=== PATIENT | male | born 1990 | race Two or more races ===

== ENCOUNTER 2016-10-21 01:01 | Emergency (ER) | payer MEDICAID ==
[2016-10-21 01:06] VITALS: BP 130/83
--- NOTE | 2016-10-21 01:08 | EDM.PDOC ---
ED HPI GENERAL MEDICAL PROBLEM - General Chief Complaint: Upper Extremity Injury/Pain Stated Complaint: left wrist cyst Time Seen by Provider: 10/21/16 01:03 Source of Information: Reports: Patient History Limitations: Reports: No Limitations - History of Present Illness INITIAL COMMENTS - FREE TEXT/NARRATIVE: Patient noticed a lump in his left wrist about 4 days ago. He is here due to his and mother fearing it may be a blood clot. He does not remember injuring his wrist recently. No vascular or neurologic complaints. No SOB, chest pain, no history of clotting disorders. States it is painful with movement most specifically flexion of the wrist. Onset Date: 10/16/16 Associated Symptoms: Reports: No Other Symptoms - Related Data Allergies Allergy/AdvReac Type Severity Reaction Status Date / Time No Known Allergies Allergy Verified 10/21/16 01:02 Home Meds: Home Meds . [No Known Home Meds] 06/15/15 [History] Past Medical History - Past Health History Medical/Surgical History: Denies Medical/Surgical History Social & Family History - Tobacco Use Smoking Status *Q: Never Smoker Review of Systems - Review of Systems Review Of Systems: ROS reveals no pertinent complaints other than HPI. ED EXAM, GENERAL - Physical Exam Exam: See Below Exam Limited By: No Limitations General Appearance: Alert, WD/WN, No Apparent Distress Extremities: Normal Inspection, Normal Range of Motion, No Pedal Edema, Other ( left wrist site is tender to palpation). No: Arm Pain, Dae's Sign, Leg Pain, Increased Warmth, Redness Neurological: Alert, Oriented, CN II-XII Intact, Normal Cognition Psychiatric: Normal Affect, Normal Mood Skin Exam: Warm, Dry, Intact, Normal Color Departure - Departure Time of Disposition: 01:10 Disposition: Home, Self-Care 01 Condition: Good Clinical Impression: Cyst in hand - Discharge Information Forms: ED Department Discharge Additional Instructions: This is likely a sebaceous cyst. I would recommend follow up with a primary doctor. They may want it to be watched for several weeks to see if it resolves on its own. If it does not, it may need to be removed. This is highly unlikely to be any kind of blood clot. Take tylenol and ibuprofen for any pain related to it. Please call with any questions or concerns. - Problem List & Annotations (1) Cyst in hand SNOMED Code(s): 371485439 Code(s): XWA8200 - Status: Acute Priority: Low - Problem List Review Problem List Initiated/Reviewed/Updated: Yes - Assessment/Plan Assessment:: left wrist cyst Plan: This is likely a sebaceous cyst. I would recommend follow up with a primary doctor. They may want it to be watched for several weeks to see if it resolves on its own. If it does not, it may need to be removed. This is highly unlikely to be any kind of blood clot. Take tylenol and ibuprofen for any pain related to it. Please call with any questions or concerns.
== END 2016-10-21 01:14 | disposition home or self-care (01) ==
LOC: VM.ED 01:01
DX: L72.9 Follicular cyst of the skin and subcutaneous tissue, unspecified (principal)
CPT/HCPCS: 99283

== ENCOUNTER 2017-05-09 12:24 | Emergency (ER) | payer MEDICAID, OTHER ==
[2017-05-09 12:44] VITALS: BP 138/76
--- NOTE | 2017-05-09 19:28 | EDM.PDOC ---
ED HPI GENERAL MEDICAL PROBLEM - General Chief Complaint: Upper Extremity Injury/Pain Time Seen by Provider: 05/09/17 12:45 Source of Information: Reports: Patient History Limitations: Reports: No Limitations - History of Present Illness INITIAL COMMENTS - FREE TEXT/NARRATIVE: Pt. states that he fell on ice several days ago and now has pain to his R shoulder. States that he fell on an outstretched hand. Denies any numbness/ tingling in the extremity. Denies striking head or other trauma elsewhere. Onset Date: 05/06/17 Location: Reports: Upper Extremity, Right Quality: Reports: Ache, Throbbing Improves with: Reports: Rest Worsens with: Reports: Movement Right Shoulder Pain Score (Numeric/FACES): 8 - Related Data Allergies Allergy/AdvReac Type Severity Reaction Status Date / Time No Known Allergies Allergy Verified 05/09/17 12:39 Home Meds: Home Meds . [No Known Home Meds] 06/15/15 [History] Past Medical History - Past Health History Medical/Surgical History: Denies Medical/Surgical History Social & Family History - Tobacco Use Smoking Status *Q: Never Smoker - Recreational Drug Use Recreational Drug Use: No Review of Systems - Review of Systems Review Of Systems: See Below Constitutional: Reports: No Symptoms Musculoskeletal: Reports: Joint Pain (L posterior shoulder) Skin: Reports: No Symptoms Neurological: Reports: No Symptoms Psychiatric: Reports: No Symptoms ED EXAM, GENERAL - Physical Exam Exam: See Below Exam Limited By: No Limitations General Appearance: Alert, WD/WN, No Apparent Distress Extremities: Normal Inspection, Normal Range of Motion, Joint Swelling, Other ( R posterior shoulder pain, in area of supraspinatus. empty can and straight arm raise are negative.) Neurological: Alert, Oriented, CN II-XII Intact, Normal Cognition, Normal Gait, Normal Reflexes, No Motor/Sensory Deficits Course - Vital Signs Last Recorded V/S: Last Vital Signs Temp 35.5 C 05/09/17 12:30 Pulse 56 L 05/09/17 12:30 Resp 16 05/09/17 12:30 BP 138/76 05/09/17 12:30 Pulse Ox - Orders/Labs/Meds Orders: Active Orders 24 hr Category Date Time Status Shoulder Comp Rt [CR] Stat Exams 05/09/17 12:46 Taken - Radiology Interpretation Free Text/Narrative:: No evidence of fracture/dislocation Departure - Departure Time of Disposition: 14:30 Disposition: Home, Self-Care 01 Condition: Good Clinical Impression: Sprain of left shoulder - Discharge Information Instructions: Shoulder Sprain, Shoulder Pain, [id number] Referrals: PCP,None [Primary Care Provider] - Forms: ED Department Discharge Additional Instructions: Ice shoulder for 10-15 min ever 1-2 hours Ibuprofen 600mg every 6 hours Follow-up in clinic in 7-10 days for recheck if not improving. - My Orders Last 24 Hours: My Active Orders 05/09/17 12:46 Shoulder Comp Rt [CR] Stat - Assessment/Plan Last 24 Hours: My Active Orders 05/09/17 12:46 Shoulder Comp Rt [CR] Stat
== END 2017-05-09 13:20 | disposition home or self-care (01) ==
LOC: VM.ED 12:24
DX: S43.401A Unspecified sprain of right shoulder joint, initial encounter (principal); W00.0XXA Fall on same level due to ice and snow, initial encounter
CPT/HCPCS: 73030-RT; 99283

== ENCOUNTER 2017-05-11 18:55 | Emergency (ER) | payer MEDICAID ==
[2017-05-11] MEDS ORDERED: Ondansetron 4 MG Tab.DIS PO ONE (19:10)
[2017-05-11 19:13] VITALS: BP 120/81
--- NOTE | 2017-05-11 19:20 | EDM.PDOC ---
ED HPI GENERAL MEDICAL PROBLEM - General Chief Complaint: Abdominal Pain Stated Complaint: Abdominal Pain Time Seen by Provider: 05/11/17 19:02 Source of Information: Reports: Patient History Limitations: Reports: No Limitations - History of Present Illness INITIAL COMMENTS - FREE TEXT/NARRATIVE: Patient comes in today with a 5 hour history of severe abdominal pain especially along the lower pelvic region. He states that he became nauseated and vomited once prior to coming in by EMS he states that he does not have any body aches no shortness of breath or chest pain. Patient states he did have one episode of vomit that there was some blood tinge in the vomit a lot of mucus was present. 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 Abdominal Pain Score (Numeric/FACES): 7 - Related Data Allergies Allergy/AdvReac Type Severity Reaction Status Date / Time No Known Allergies Allergy Verified 05/11/17 19:10 Home Meds: Home Meds Sulfamethoxazole/Trimethoprim [Bactrim 400-80 MG] 1 each PO BID 5 Days #10 tablet 05/11/17 [Rx] Past Medical History - Past Health History Medical/Surgical History: Denies Medical/Surgical History Social & Family History - Tobacco Use Smoking Status *Q: Never Smoker - Recreational Drug Use Recreational Drug Use: No ED ROS GENERAL - Review of Systems Review Of Systems: See Below Constitutional: Reports: No Symptoms, Fatigue. Denies: Fever, Chills, Malaise, Night Sweats, Diaphoresis, Weight Gain HEENT: Reports: No Symptoms Respiratory: Reports: No Symptoms Cardiovascular: Reports: No Symptoms Endocrine: Reports: No Symptoms GI/Abdominal: Reports: Diarrhea, Nausea, Vomiting : Reports: No Symptoms Skin: Reports: No Symptoms Neurological: Reports: No Symptoms Psychiatric: Reports: No Symptoms ED EXAM, GI/ABD - Physical Exam Exam: See Below Exam Limited By: No Limitations General Appearance: Alert, WD/WN, No Apparent Distress Nose: Normal Inspection Respiratory/Chest: No Respiratory Distress, Lungs Clear, Normal Breath Sounds, No Accessory Muscle Use, Chest Non-Tender Neurological: Alert, Oriented, CN II-XII Intact Psychiatric: Normal Affect, Normal Mood Skin Exam: Warm, Dry, Intact, Normal Color, No Rash Course - Vital Signs Last Recorded V/S: Last Vital Signs Temp 36.9 C 05/11/17 19:11 Pulse 83 05/11/17 19:11 Resp 14 05/11/17 19:11 BP 120/81 05/11/17 19:11 Pulse Ox 96 05/11/17 19:11 - Orders/Labs/Meds Orders: Active Orders 24 hr Category Date Time Status Abdomen wo Cont [CT] Stat Exams 05/11/17 19:10 Ordered Labs: Laboratory Tests 05/11/17 05/11/17 Range/Units 19:37 19:37 WBC 10.3 H (4.0-10.0) x10^3/uL RBC 5.01 (4.5-6.0) x10^6/uL Hgb 15.0 (14.0-18.0) g/dL Hct 44.8 (40.0-52.0) % MCV 89.4 (78.0-93.0) fL MCH 29.9 (26.0-32.0) pg MCHC 33.5 (32.0-36.0) g/dL RDW Coeff of Oumou 13.2 (10.0-15.0) % Plt Count 241 (130-400) x10^3/uL Neut % (Auto) 87.5 H (50.0-80.0) % Lymph % (Auto) 5.5 L (25.0-50.0) % [place] % (Auto) 5.9 (2.0-11.0) % Eos % (Auto) 0.9 (0.0-4.0) % Baso % (Auto) 0.2 (0.2-1.2) % Sodium 144 (136-145) mmol/L Potassium 4.4 (3.5-5.1) mmol/L Chloride 105 (98-107) mmol/L Carbon Dioxide 27 (21-32) mmol/L BUN 15 (7-18) mg/dL Creatinine 1.2 (0.70-1.30) mg/dL Est Cr Clr Drug Dosing 90.25 mL/min Estimated GFR (MDRD) > 60 Glucose 112 H (74-106) mg/dL Calcium 9.1 (8.5-10.1) mg/dL Corrected Calcium 8.70 (8.5-10.1) mg/dL Total Bilirubin 0.7 (0.2-1.0) mg/dL AST 12 L (15-37) U/L ALT 44 (16-63) U/L Alkaline Phosphatase 77 (46-116) U/L Total Protein 7.6 (6.4-8.2) g/dL Albumin 4.5 (3.4-5.0) g/dL Globulin 3.1 Albumin/Globulin Ratio 1.45 Amylase 47 (25-115) U/L Lipase 67 L (73-393) U/L Meds: Medications Discontinued Medications Generic Name Dose Route Start Last Admin Trade Name Grisel PRN Reason Stop Dose Admin Al Hydroxide/Mg Hydroxide 30 ml 05/11/17 20:04 05/11/17 20:09 Gi Cocktail PO 05/11/17 20:05 30 ml ONETIME ONE Administration Ceftriaxone Sodium 1 gm 05/11/17 20:43 Rocephin IM 05/11/17 20:44 ONETIME ONE Ondansetron HCl 4 mg 05/11/17 19:10 05/11/17 19:33 Zofran Odt PO 05/11/17 19:11 4 mg ONETIME ONE Administration Trimethoprim/Sulfamethoxazole 2 packet 05/11/17 20:45 Take Home: Sulfameth/Trimet 800-160mg, 2 Pack PO 05/11/17 20:46 ONETIME ONE Departure - Departure Time of Disposition: 20:50 Disposition: Home, Self-Care 01 Condition: Good Clinical Impression: Nephrolithiasis - Discharge Information Prescriptions: Sulfamethoxazole/Trimethoprim [Bactrim 400-80 MG] 1 each PO BID 5 Days #10 tablet Instructions: Nausea and Vomiting, Adult, [id number] Forms: ED Department Discharge - My Orders Last 24 Hours: My Active Orders 05/11/17 19:10 Abdomen wo Cont [CT] Stat - Assessment/Plan Last 24 Hours: My Active Orders 05/11/17 19:10 Abdomen wo Cont [CT] Stat
[2017-05-11 20:02] LABS: CHLORIDE,CL 105 mmol/L (98-107); SODIUM,NA 144 mmol/L (136-145)
[2017-05-11] MEDS ORDERED: GI Cocktail Oral Solution 30 ML PO ONE (20:04)
[2017-05-11] MEDS ORDERED: cefTRIAXone 1 GM Vial IM ONE (20:43)
[2017-05-11] MEDS ORDERED: Take Home: Sulfamethoxazole/Trimethoprim 800-160 MG Tab, 2 Tab Pack PO ONE (20:45)
[2017-05-11] MEDS ORDERED: Lidocaine 1% PF 2 ML SDV INJECT ONE (20:51)
== END 2017-05-11 21:09 | disposition home or self-care (01) ==
LOC: VM.ED 18:55
DX: N20.0 Calculus of kidney (principal)
CPT/HCPCS: 36415; 74150; 80053; 82150; 83690; 85025; 96372; 99285; A9270; J0696

== ENCOUNTER 2017-10-20 07:53 | Emergency (ER) | payer MEDICAID ==
[2017-10-20 08:14] VITALS: BP 135/77
[2017-10-20] MEDS ORDERED: Take Home: Doxycycline 100 MG Tab, 4 Tab Pack PO ONE (08:51)
--- NOTE | 2017-10-20 10:19 | EDM.PDOC ---
ED HPI GENERAL MEDICAL PROBLEM - General Chief Complaint: General Stated Complaint: SORE THROAT Time Seen by Provider: 10/20/17 08:05 Source of Information: Reports: Patient History Limitations: Reports: No Limitations - History of Present Illness INITIAL COMMENTS - FREE TEXT/NARRATIVE: PtJerrod presents to ER with complaints of chest congestion, cough, and sore throat. He states that he has been experiencing these symptoms for approx. 4 days. He states that he was chilled approx. 2 days ago. He is concerned, because he doesn 't want to pass this illness to his children. He denies any dysuria. No abdominal pain or rashes. Denies any nausea, vomiting , or diarrhea. Onset Date: 10/16/17 Duration: Getting Worse Location: Reports: Neck, Chest - Related Data Allergies Allergy/AdvReac Type Severity Reaction Status Date / Time No Known Allergies Allergy Verified 05/11/17 19:10 Home Meds: Home Meds Sulfamethoxazole/Trimethoprim [Bactrim 400-80 MG] 1 each PO BID 5 Days #10 tablet 05/11/17 [Rx] Past Medical History - Past Health History Medical/Surgical History: Denies Medical/Surgical History Social & Family History - Tobacco Use Smoking Status *Q: Never Smoker ED ROS GENERAL - Review of Systems Review Of Systems: See Below Constitutional: Reports: Chills, Malaise, Fatigue HEENT: Reports: Sinus Problem, Throat Pain Respiratory: Reports: Cough, Sputum Cardiovascular: Reports: No Symptoms Endocrine: Reports: No Symptoms GI/Abdominal: Reports: No Symptoms : Reports: No Symptoms Musculoskeletal: Reports: No Symptoms Skin: Reports: No Symptoms Neurological: Reports: No Symptoms Psychiatric: Reports: No Symptoms Hematologic/Lymphatic: Reports: No Symptoms Immunologic: Reports: No Symptoms ED EXAM, GENERAL - Physical Exam Exam: See Below Exam Limited By: No Limitations General Appearance: Alert, WD/WN, No Apparent Distress Eye Exam: Bilateral Eye: EOMI, Normal Fundi, Normal Inspection, PERRL Ears: Normal External Exam, Normal Canal, Hearing Grossly Normal, Normal TMs Ear Exam: Bilateral Ear: TM normal Nose: Normal Inspection, Normal Mucosa, No Blood Throat/Mouth: Normal Lips, Normal Teeth, Normal Gums, Normal Voice, No Airway Compromise, Inflammation Head: Atraumatic, Normocephalic Neck: Normal Inspection, Supple, Non-Tender, Full Range of Motion Respiratory/Chest: No Respiratory Distress, Lungs Clear, Normal Breath Sounds, No Accessory Muscle Use, Chest Non-Tender Cardiovascular: Normal Peripheral Pulses, Regular Rate, Rhythm, No Edema, No Gallop, No JVD, No Murmur, No Rub GI/Abdominal: Normal Bowel Sounds, Soft, Non-Tender, No Organomegaly, No Distention, No Abnormal Bruit, No Mass (Male) Exam: Deferred Rectal (Males) Exam: Deferred Back Exam: Normal Inspection, Full Range of Motion, NT Extremities: Normal Inspection, Normal Range of Motion, Non-Tender, Normal Capillary Refill, No Pedal Edema Neurological: Alert, Oriented, CN II-XII Intact, Normal Cognition, Normal Gait, Normal Reflexes, No Motor/Sensory Deficits Psychiatric: Normal Affect, Normal Mood Skin Exam: Warm, Dry, Intact, Normal Color, No Rash Lymphatic: No Adenopathy Course - Vital Signs Last Recorded V/S: Last Vital Signs Temp 35.7 C 10/20/17 08:01 Pulse 77 10/20/17 08:01 Resp 16 10/20/17 08:01 BP 135/77 10/20/17 08:01 Pulse Ox 95 10/20/17 08:01 - Orders/Labs/Meds Orders: Active Orders 24 hr Category Date Time Status Chest 2V [CR] Stat Exams 10/20/17 08:03 Taken CULTURE STREP A CONFIRMATION [RM] Stat Lab 10/20/17 08:10 Results STREP SCRN A RAPID W CULT CONF [RM] Stat Lab 10/20/17 08:10 Results Meds: Medications Discontinued Medications Generic Name Dose Route Start Last Admin Trade Name Grisel PRN Reason Stop Dose Admin Doxycycline Monohydrate 1 packet 10/20/17 08:51 10/20/17 08:59 Take Home: Doxycycline 100 Mg, 4 Tab Pack PO 10/20/17 08:52 1 packet ONETIME ONE Administration - Radiology Interpretation Free Text/Narrative:: CXR shows R lower lobe infiltrate Departure - Departure Time of Disposition: 09:05 Disposition: Home, Self-Care 01 Condition: Good Clinical Impression: CAP (community acquired pneumonia) - Discharge Information Instructions: Doxycycline tablets or capsules, Community-Acquired Pneumonia, Adult, [id number] Referrals: PCP,None [Primary Care Provider] - Forms: ED Department Discharge Additional Instructions: Doxycycline 100mg twice daily for 10 days. Recheck in clinic in 2 weeks. Drink plenty of fluids. Work on taking deep breaths. It is helpful to stay active and helps to clear the infection. - My Orders Last 24 Hours: My Active Orders 10/20/17 08:03 Chest 2V [CR] Stat 10/20/17 08:10 CULTURE STREP A CONFIRMATION [RM] Stat STREP SCRN A RAPID W CULT CONF [RM] Stat - Assessment/Plan Last 24 Hours: My Active Orders 10/20/17 08:03 Chest 2V [CR] Stat 10/20/17 08:10 CULTURE STREP A CONFIRMATION [RM] Stat STREP SCRN A RAPID W CULT CONF [RM] Stat Plan: Doxycycline 100mg twice daily for 10 days. Recheck in clinic in 2 weeks. Drink plenty of fluids. Work on taking deep breaths. It is helpful to stay active and helps to clear the infection.
== END 2017-10-20 09:05 | disposition home or self-care (01) ==
LOC: VM.ED 07:53
DX: J18.9 Pneumonia, unspecified organism (principal)
CPT/HCPCS: 71046; 87081; 87804; 87880; 99283; A9270

== ENCOUNTER 2018-01-18 07:24 | Emergency (ER) | payer MEDICAID ==
[2018-01-18 07:42] VITALS: BP 127/71
--- NOTE | 2018-01-18 07:58 | EDM.PDOC ---
ED HPI GENERAL MEDICAL PROBLEM - General Chief Complaint: Abdominal Pain Stated Complaint: LT ABDOMINAL PAIN Time Seen by Provider: 01/18/18 07:30 Source of Information: Reports: Patient History Limitations: Reports: No Limitations - History of Present Illness INITIAL COMMENTS - FREE TEXT/NARRATIVE: Patient comes into the emergency department with complaint of sudden onset of left lower abdominal pain radiating to the flank area. It started about 45 minutes ago. It. He thought it may be gas or constipation he did use the bathroom-had a bowel movement that was normal consistency but when he was urinating he did hear the sound of metal hitting the toilet and thought it could possibly be kidney stones. When he urinated he notes that the discomfort had decreased. However patient was concerned regarding the sudden onset of the discomfort so he presented to the emergency department. He denies any new sexual partners in the last 60 days. He states he has not had any abnormal discharge or foul smell. He has had urinary frequency and hesitancy over the course of last day or 2. Denies any fever numbness tingling shortness of breath or chest pain. Left Middle Abdomen Pain Score (Numeric/FACES): 4 - Related Data Allergies Allergy/AdvReac Type Severity Reaction Status Date / Time No Known Allergies Allergy Verified 01/18/18 07:35 Home Meds: Home Meds Ketorolac [Toradol] 10 mg PO TID PRN #20 tab 01/18/18 [Rx] Tamsulosin HCl [Flomax] 0.4 mg PO DAILY 7 Days #7 cap.er.24h 01/18/18 [Rx] Past Medical History - Past Health History Medical/Surgical History: Denies Medical/Surgical History ED ROS GENERAL - Review of Systems Review Of Systems: See Below Constitutional: Reports: No Symptoms HEENT: Reports: No Symptoms Respiratory: Reports: No Symptoms Cardiovascular: Reports: No Symptoms Endocrine: Reports: No Symptoms GI/Abdominal: Reports: No Symptoms : Reports: Dysuria, Flank Pain, Frequency. Denies: Hematuria Musculoskeletal: Reports: No Symptoms Skin: Reports: No Symptoms Neurological: Reports: No Symptoms Psychiatric: Reports: No Symptoms ED EXAM, GENERAL - Physical Exam Exam: See Below Exam Limited By: No Limitations General Appearance: Alert, WD/WN, No Apparent Distress Head: Atraumatic, Normocephalic Neck: Normal Inspection, Supple, Non-Tender Respiratory/Chest: No Respiratory Distress, Lungs Clear, Normal Breath Sounds, No Accessory Muscle Use, Chest Non-Tender Cardiovascular: Normal Peripheral Pulses, Regular Rate, Rhythm GI/Abdominal: Normal Bowel Sounds, Soft, No Distention, No Abnormal Bruit, Pelvis Stable, Tender. No: Distended, Guarding, Rigid, Abnormal Bowel Sounds, Mass, Hepatomegaly, Splenomegaly Back Exam: Normal Inspection, Full Range of Motion Extremities: Normal Inspection, Normal Range of Motion, Non-Tender, Normal Capillary Refill Neurological: Alert, Oriented Psychiatric: Normal Affect, Normal Mood Skin Exam: Warm, Dry, Intact, Normal Color, No Rash Course - Vital Signs Last Recorded V/S: Last Vital Signs Temp 36.4 C 01/18/18 07:25 Pulse 58 L 01/18/18 07:25 Resp 16 01/18/18 07:25 BP 127/71 01/18/18 07:25 Pulse Ox 100 01/18/18 07:25 - Orders/Labs/Meds Orders: Active Orders 24 hr Category Date Time Status Abdomen Pelvis wo Cont [CT] Stat Exams 01/18/18 07:34 Taken Labs: Laboratory Tests 01/18/18 01/18/18 01/18/18 Range/Units 07:40 07:46 07:46 WBC 5.7 (4.0-10.0) x10^3/uL RBC 5.14 (4.5-6.0) x10^6/uL Hgb 15.6 (14.0-18.0) g/dL Hct 45.5 (40.0-52.0) % MCV 88.5 (78.0-93.0) fL MCH 30.4 (26.0-32.0) pg MCHC 34.3 (32.0-36.0) g/dL RDW Coeff of Oumou 13.1 (10.0-15.0) % Plt Count 236 (130-400) x10^3/uL Neut % (Auto) 54.1 (50.0-80.0) % Lymph % (Auto) 33.0 (25.0-50.0) % [place] % (Auto) 9.5 (2.0-11.0) % Eos % (Auto) 2.7 (0.0-4.0) % Baso % (Auto) 0.7 (0.2-1.2) % Sodium 141 (136-145) mmol/L Potassium 3.7 (3.5-5.1) mmol/L Chloride 104 (98-107) mmol/L Carbon Dioxide 32 (21-32) mmol/L Anion Gap 8.7 L (10-20) mmol/L BUN 15 (7-18) mg/dL Creatinine 1.4 H (0.70-1.30) mg/dL Est Cr Clr Drug Dosing 88.23 mL/min Estimated GFR (MDRD) > 60 Glucose 102 (74-106) mg/dL Calcium 9.1 (8.5-10.1) mg/dL Corrected Calcium 9.10 (8.5-10.1) mg/dL Total Bilirubin 0.4 (0.2-1.0) mg/dL AST 20 (15-37) U/L ALT 46 (16-63) U/L Alkaline Phosphatase 79 (46-116) U/L Total Protein 7.6 (6.4-8.2) g/dL Albumin 4.0 (3.4-5.0) g/dL Globulin 3.6 Albumin/Globulin Ratio 1.11 Urine Color Yellow (YELLOW) Urine Appearance Clear (CLEAR) Urine pH 7.5 (5.0-8.0) Ur Specific [place] 1.015 Urine Protein Negative (NEGATIVE) mg/dL Urine Glucose (UA) Negative (NEGATIVE) mg/dL Urine Ketones Negative (NEGATIVE) mg/dL Urine Occult Blood Negative (NEGATIVE) Urine Nitrite Negative (NEGATIVE) Urine Bilirubin Negative (NEGATIVE) Urine Urobilinogen 0.2 (0.2) EU/dL Ur Leukocyte Esterase Negative (NEGATIVE) Urine RBC 0-5 (NOT SEEN) /HPF Urine WBC 0-5 (NOT SEEN) /HPF Ur Squamous Epith Cells Not seen (NEGATIVE) /HPF Urine Bacteria Few H (NEGATIVE) /HPF Urine Mucus Rare H (NEGATIVE) /LPF Departure - Departure Time of Disposition: 09:30 Disposition: Home, Self-Care 01 Condition: Good Clinical Impression: Nephrolithiasis - Discharge Information *PRESCRIPTION DRUG MONITORING PROGRAM REVIEWED*: Yes *COPY OF PRESCRIPTION DRUG MONITORING REPORT IN PATIENT TRISH: No Prescriptions: Tamsulosin HCl [Flomax] 0.4 mg PO DAILY 7 Days #7 cap.er.24h Instructions: Low-Purine Eating Plan, Kidney Stones, [id number] Forms: ED Department Discharge Additional Instructions: 1. Rest 2. Increase water intake 3. Your labs were within normal limits. 4. CT scan revealed kidney stone in the kidney. No surgical intervention at this time. 5. Toradol and flomax are prescribed please take them as labeled 6. Activity and diet as tolerated 7. Follow up within a week if not better 8. Questions or concerns please feel free to call - My Orders Last 24 Hours: My Active Orders 01/18/18 07:34 Abdomen Pelvis wo Cont [CT] Stat - Assessment/Plan Last 24 Hours: My Active Orders 01/18/18 07:34 Abdomen Pelvis wo Cont [CT] Stat Assessment:: 1. left lower abdominal pain Plan: 1. Labs completed in ER. Results reviewed with the patient 2. CT scan completed in ER. Results reviewed with the patient 3. Did offer pain medication and pt would prefer to wait 4. Flomax as prescribed 5. Toradol as prescribed 6. Activity and diet as tolerated 7. Follow up with PCP if not better within a week
[2018-01-18 08:16] LABS: CHLORIDE,CL 104 mmol/L (98-107); SODIUM,NA 141 mmol/L (136-145)
[2018-01-18 08:26] LABS: ANION GAP 8.7 mmol/L (10-20)
== END 2018-01-18 09:45 | disposition home or self-care (01) ==
LOC: VM.ED 07:24
DX: N20.0 Calculus of kidney (principal); Z79.899 Other long term (current) drug therapy
CPT/HCPCS: 36415; 74176; 80053; 81001; 85025; 99284